=== PATIENT | female | born 1980 | race Caucasian/White ===

== ENCOUNTER → 2020-12-20 10:53 | Outpatient (BNVA) | payer OTHER, SELFPAY | PROVIDERS: PCP Family Medicine; Visit Provider Internal Medicine | DX: R53.83 Other fatigue (principal); G47.00 Insomnia, unspecified; M25.50 Pain in unspecified joint; Z11.59 Encounter for screening for other viral diseases; Z79.899 Other long term (current) drug therapy; R21 Rash and other nonspecific skin eruption; F17.210 Nicotine dependence, cigarettes, uncomplicated | CPT/HCPCS: 36415; 99204 ==

== ENCOUNTER 2020-12-20 12:26 | Outpatient (CLI) | payer OTHER, SELFPAY ==
--- NOTE | 2020-12-20 12:34 | XR_ITS ---
WS: [id number] TECHNIQUE: 2 views of the right hand CLINICAL INFORMATION: R21 - Rash and other nonspecific skin eruption COMPARISON: None. FINDINGS: Normal metacarpals. Normal MCP joint. Metacarpal heads are normal in appearance. Normal PIP and DIP j oints. No evidence of acute fracture or dislocation. Radiocarpal joint: Normal. Carpal bones: Normal. XR/XR hand RT 2V [id number] IMPRESSION: Normal right hand.
--- NOTE | 2020-12-20 12:34 | XR_ITS ---
WS: [id number] FOOT RIGHT TECHNIQUE: 2 views of the right foot CLINICAL INFORMATION: M25.50 - Pain in unspecified joint COMPARISON: None. FINDINGS: Hallux valgus. No evidence of acute fracture or dislocation. Normal tarsal metatarsal alignment. Norm al calcaneus. Normal visualized talar dome. No erosive changes. XR/XR foot RT 2V [id number] IMPRESSION: Hallux valgus. Right foot otherwise unremarkable.
--- NOTE | 2020-12-20 12:34 | XR_ITS ---
WS: [id number] FOOT LEFT TECHNIQUE: 2 views of the left foot CLINICAL INFORMATION: M25.50 - Pain in unspecified joint COMPARISON: None. FINDINGS: Mild hallux valgus. No evidence of acute fracture or dislocation. Normal tarsal metatarsal alignment. Normal calcaneus. Normal visualized talar dome. No erosive changes.. XR/XR foot LT 2V [id number] IMPRESSION: Mild hallux valgus. Left is otherwise unremarkable.
--- NOTE | 2020-12-20 12:34 | XR_ITS ---
WS: [id number] TECHNIQUE: 2 views of the left hand CLINICAL INFORMATION: R21 - Rash and other nonspecific skin eruption COMPARISON: None. FINDINGS: Normal metacarpals. Normal MCP joint. Metacarpal heads are normal in appearance. Normal PIP and DIP j oints. No evidence of acute fracture or dislocation. Radiocarpal joint: Normal. Carpal bones: Normal. XR/XR hand LT 2V [id number] IMPRESSION: Normal left hand.
== END 2020-12-20 12:27 | disposition home or self-care (01) ==
PROVIDERS: PCP Family Medicine; Visit Provider Internal Medicine
DX: M25.50 Pain in unspecified joint (principal); R21 Rash and other nonspecific skin eruption; Z11.59 Encounter for screening for other viral diseases; Z11.1 Encounter for screening for respiratory tuberculosis
CPT/HCPCS: 36415; 73120; 73620; 80053; 81003; 82533; 82550; 82607; 82728; 82784; 83516; 83540; 83735; 84100; 84439; 84443; 85025; 85651; 86140; 86160; 86162; 86235; 86255; 86376; 86431; 86704; 86803; 87340